=== PATIENT | male | born 1990 | race Caucasian/White ===

== ENCOUNTER 2017-02-01 16:24 | Emergency (ER) | payer OTHER ==
[~2017-02-01 16:24] MED LIST: ATARAX PO; BIPOLAR MED; DEPRESSION MED; FIORINAL CAPSUL1 CAP PO; FLEXERIL10 MG PO; KEFLEX500 M1 PO; NAPROSYN500 MG PO; NO MEDICATIONS; PREDNISONE1 MG PO; TYLENOL #3 PO; TYLOX1 CAP 5/50 PO; VOLTAREN75 MG PO
== END 2017-02-01 16:33 | disposition home or self-care (01) ==
LOC: SED 16:24
DX: K04.7 Periapical abscess without sinus (principal); F31.9 Bipolar disorder, unspecified; Z88.0 Allergy status to penicillin; F17.200 Nicotine dependence, unspecified, uncomplicated
CPT/HCPCS: 99282